=== PATIENT | female | born 1985 | race Caucasian/White ===

== ENCOUNTER → 2019-05-28 13:38 | Outpatient (CLI) | payer BC | END | disposition home or self-care (01) | LOC: D.US 13:38 | PROVIDERS: ATTEND Nurse Practitioner Family | DX: R10.2 Pelvic and perineal pain (principal) ==

== ENCOUNTER → 2019-06-04 14:23 | Outpatient (CLI) | payer BC | END | disposition home or self-care (01) | LOC: D.CT 14:23 | PROVIDERS: ATTEND Nurse Practitioner Family | DX: J34.0 Abscess, furuncle and carbuncle of nose (principal) ==

== ENCOUNTER 2019-07-16 05:11 | Day surgery (SDC) | payer BC ==
[~2019-07-16] VITALS: Ht 162.6 cm; Wt 65.8 kg
--- NOTE | ~2019-07-16 | OP ---
PATIENT NAME: DELMY ROCK MEDICAL RECORD: [id number] :85 LOCATION:[facility] ADMISSION DATE: SURGEON: LENNY QUESADA MD DATE OF OPERATION: 07/16/2019 PREOPERATIVE DIAGNOSIS: Left nasofacial mass. POSTOPERATIVE DIAGNOSIS: Left nasofacial mass. PROCEDURE: Excision of left facial mass through intraoral approach combined with a nasal approach. SURGEON: Lenny Quesada MD ANESTHESIA: General orotracheal. BLOOD LOSS: Less than 5 cc. SPECIMENS: Left facial cystic mass. NASAL PACKING: Merocel packing in the nose. 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 COMPLICATIONS: None. DISPOSITION: Recovery stable. DESCRIPTION OF PROCEDURE: She was brought to operating room and placed in supine position, sedated and intubated by anesthesia. Oral cavity was examined. The upper gingival buccal sulcus was injected with 1 cc of 1% lidocaine with 1:100,000 epinephrine. The floor of the nose, nasal septum were also injected as well as the nasal sill. There was a large mass totally obstructing the nose and really pushing the nose away from the face deforming the entire piriform aperture. She was prepped and draped in usual fashion. An incision was made with a cautery in the superior gingival buccal sulcus. This was taken down to the large cystic mass which was really filling the entire left piriform and with a bony deformity as well. Dissected straight down on to the maxilla with a caudal elevator and dissected the mass away and then dissected away from the lip musculature and followed it into the nasal cavity retracting the upper lip superiorly. It was difficult to divide from the lateral nasal wall mucosa and the inferior meatus, but that was dissected apart separately and then laterally as well and this was followed up superiorly to the nasolacrimal duct. It was followed all the way up there, dissected with a caudal into the duct sac and then I placed the nasal lacrimal duct probes in through the inferior lacrimal duct on the left side and down into the nasal cavity opening this up into the nose and then dividing it there at the nasal lacrimal duct and the lacrimal sac. Removed the mass, which decompressed to get a good visualization of the duct area and then easily passed larger lacrimal duct probes into the inferior meatus and could see those visually, did not place a stent. Then, I closed the wound in layers with the sulcus closed with interrupted 3-0 Vicryl. Outfractured both inferior turbinates and used suction cautery to reduce the size a little bit. Opened up the nasal airway. She had some septal spur on the left side that was left alone and then placed a Merocel to hold down the floor of the nose on the OPERATIVE REPORT [id number] DELMY ROCK left side with some mupirocin ointment. She was awakened, extubated, and transported to recovery in good condition. No complications. TRANSINT:[id number] Voice Confirmation ID: [id number] DOCUMENT ID: [id number] LENNY QUESADA MD CC: [id number] DICTATION DATE: 07/16/19 1000 [employer] EXECUTIVE: 07/16/19 1703 [facility] [place] 07/16/19 [facility] [address] [place] [address]
--- NOTE | ~2019-07-16 | HP ---
PATIENT: DELMY RAIN MEDICAL RECORD: [id number] ACCOUNT: [id number] LOCATION:[facility] : 85 ADMISSION DATE: 07/16/19 PCP: NERY LOPEZ MD HISTORY AND PHYSICAL EXAMINATION HISTORY OF PRESENT ILLNESS: Ms. Rain is a 34-year-old female with a slowly, enlarging, long history of a mass on left face, inferior and lateral to the nose. It has progressively developed facial and nasal deformity, nasal obstruction. She is being admitted for excision of that mass. PAST MEDICAL HISTORY: Allergic rhinitis. PAST SURGICAL HISTORY: Blood drained from the right eye due to possible retinal detachment in 2003. ALLERGIES: No known drug allergies. PHYSICAL EXAMINATION: GENERAL: She is healthy-appearing. FACE: She has a mass emanating from the soft tissue inferior to the piriform aperture on the left side, displacing the alar rim obstructing the nasal cavity. CT suggests could be a dentigerous cyst from an incisor. ORAL CAVITY AND OROPHARYNX: She does not have any trismus. No lesions or masses. No visible changes in the mouth. NECK: No masses, no adenopathy. CHEST: Clear. CARDIOVASCULAR: Regular rate and rhythm, no murmur. EXTREMITIES: Normal. IMPRESSION: Left facial mass, nasal mass. PLAN: Excision of left facial mass, upper sublabial incision. TRANSINT:[id number] Voice Confirmation ID: [id number] DOCUMENT ID: [id number] DOMENICO QUESADA MD CC: [id number] DICTATION DATE: 07/12/19 1047 [employer] OPERATOR: 07/12/19 1157 [facility] [address] [place] [address]
[~2019-07-16 05:11] MED LIST: IBUPROFEN800 MG PO; MELATONIN5 MG PO; ZYRTEC10 MG PO
[2019-07-16 05:50] LABS: HEMATOCRIT 41.4 % (36.0-48.0); HEMOGLOBIN 13.6 g/dL (12-16); MCH 27.7 pg (26.0-34.0); MCHC 32.9 g/dL (31.0-37.0); MCV 84.3 fL (80.0-100.0); MEAN PLATELET VOLUME 9.9 fL (7.4-10.4); RBC 4.91 10x6/uL (4.00-5.40); RDW 13.3 % (11.5-14.5); WBC 8.5 10x3/uL (4.8-10.8)
[2019-07-16] MEDS ORDERED: ACETAMINOPHEN325 MG PO (06:03)
[2019-07-16 06:15] VITALS: BP 136/84; Ht 162.6 cm; Wt 65.8 kg
[2019-07-16 06:51] LABS: HCG SERUM NEGATIVE (NEGATIVE)
== END 2019-07-16 11:39 | disposition home or self-care (01) ==
LOC: D.PAN 05:11 → D.OPS 07:45 → D.PAN 07:45
PROVIDERS: Anesthesiology; ATTEND Otolaryngology
DX: R22.9 Localized swelling, mass and lump, unspecified (principal)